=== PATIENT | female | born 1955 | race Caucasian/White ===

== ENCOUNTER → 2019-04-09 09:41 | Day surgery (SDC) | payer OTHER ==
[~2019-04-09 09:41] MED LIST: Atropine 1MG/ML INJ* 1 ML VIAL ONE; Buffered Lidocaine 1% SYRIN* 1 ML/SYRINGE INTRADERM ONE; Dexamethasone IV* 4 MG/ML 1 ML (4 MG) ONE; Dexmedetomidine* 200 MCG/2 ML 2 ML VIAL ONE; Glycopyrrolate IV* 0.2 MG/ML 1 ML VIAL ONE; Ketorolac INJ* 30 MG/ML 1 ML VIAL ONE; Lactated Ringers 1000 ML Bag* 1,000 ML IV SCH; Lidocaine 2% PF * 5 ML VIAL ONE; Metoclopramide IV* 5 MG/ML 2 ML VIAL ONE; Midazolam* 1 MG/ML 2 ML VIAL (2 MG) ONE; Ondansetron INJ* 2 MG/ML VIAL ONE; Propofol* 10 MG/ML 20 ML BTL ONE; ROPIVACAINE 5 MG/ML 30 ML BTL (0.5%) ONE; Rocuronium* 10 MG/ML VIAL ONE; Sugammadex * 500 MG/5 ML VIAL IV PUSH ONE; ceFAZolin 2 GM PREMIX in ORs 2 GM/50 ML BAG ONE; fentaNYL* 50 MCG/ML 2 ML VIAL (100 MCG VIAL) ONE
[2019-04-09 15:15] VITALS: BP 124/75
--- NOTE | 2019-04-10 01:04 | OP ---
CC: PCP, Diamond Mtz MD * DATE OF OPERATION: 04/09/19 - [facility] DATE OF : 53 SURGEON: Melia Olivares MD. ASSISTANTS: GEORGETTE Oshea. Second environmental emergencies assistant was Jean Paul , a GEORGETTE Student An environmental emergencies assistant was needed for the entirety of the case to help with positioning, retraction, and utilized throughout all portions of the case. ANESTHESIOLOGIST: Dr. Georges. ANESTHESIA: General and interscalene block. PRE-OP DIAGNOSES: Osteoarthritis of the shoulder, high-grade partial tear of the right rotator cuff, loose body in the glenohumeral joint. POST-OP DIAGNOSES: Osteoarthritis of the shoulder, high-grade partial tear of the right rotator cuff, loose body in the glenohumeral joint. OPERATIVE PROCEDURES: Right shoulder arthroscopy with: 1. Extensive glenohumeral debridement including chondroplasty and biceps tenotomy. 2. Removal of loose body x1, greater than 1 cm. 3. Subacromial decompression with acromioplasty. 4. Rotator cuff repair using a Regeneten patch. COMPLICATIONS: None. ESTIMATED BLOOD LOSS: Minimal. IMPLANTS USED: One Regeneten patch. INDICATIONS: Tammie Collins is a 63-year-old female who presents with right shoulder pain. She also had osteoarthritis of the shoulder. After extensive discussion, she had persistent pain and loss of motion. She has failed physical therapy, antiinflammatories. She has elected to proceed with surgical treatment. Risks and benefits were discussed at length include, but are not limited to bleeding, infection, damage to nerves, vessels, and surrounding structures; wound nonhealing; persistent pain, need for further surgery, scarring, stiffness, incomplete relief of symptoms, risk of anesthesia. OPERATIVE NOTE: The patient was greeted in the preoperative area by the attending surgeon. The correct extremity was marked and consent was confirmed. The patient underwent interscalene nerve block by the anesthesiologist. After which, she was brought back to the operating suite where she was placed in supine position on the operating table. She underwent general anesthesia with endotracheal intubation. She was then placed in the left lateral decubitus position with all bony prominences padded and she was secured with a peg board and an axillary roll was placed. The right shoulder was then prepped and draped in the usual sterile fashion beginning with chlorhexidine soap, scrub, and alcohol wipe and a final prep with ChloraPrep. After appropriate surgical pause indicating side, site, and procedure, administration of antibiotics, a standard postero-lateral portal was made sharply with an #11 blade. The scope was introduced into the joint, the joint was examined. There was abundant synovitis and glenohumeral arthritis with an unstable flap. There were areas of grade 2 and 3 changes. There was a large loose body inferiorly in the recess. The anterior portal was made in an outside -in fashion. A shaver was used to debride back to the anterior, posterior, and superior labrum. The biceps was subluxed and there was a partial tear of the infraspinatus with an unstable flap. The subscap appeared to be intact. The shaver was used to debride back to stable chondroplasty to the anterior, posterior, and superior labrum. The loose body that was evidenced inferior in the joint was then carefully piecemealed and removed carefully. Once this was removed, the remaining of the labrum was debrided back. Decision was made to treat the biceps. We have discussed biceps tenotomy versus biceps tenodesis. I do think that the patient had a large enough biceps that it would likely auto tenodese at the portal side and therefore I tenotomized it at this point. Once the debridement was completed, attention was directed to the subacromial space. After the scope was positioned in the subacromial space, the lateral port was made in an outside-in fashion. Shaver was used to debride back the abundant significant bursa that was present and revealed an anterolateral spur that was down-jerez sloping. This was removed using a 4.0 oval shelly and the CA ligament was peeled back. Once this was completed, the cuff was gently probed. There was no evidence full-thickness tearing. Decision was made to treat the rotator cuff repair with a Regeneten patch. A size medium Regeneten patch was then brought to the field and placed under arthroscopic direct visualization. Once this was done, through a separate stab incision, a cannula was placed to pass the tendon mellissa. These were then passed with a good purchase and this helped to secure the graft medially. After this was done, two bone mellissa were used laterally to help secure it to the bone. After this was done, the final images were obtained. The shoulder was taken through gentle range of motion and the graft was found to be well placed. Final images were obtained. The wounds were copiously irrigated with sterile saline. Portals were closed with 3-0 nylon. Sterile dressings were applied. She was awoken from anesthesia and and transferred to the PACU in stable condition. POSTOPERATIVE PLAN: She will be nonweightbearing. She will be discharged on pain medication. DVT prophylaxis was considered, but deferred due to no previous personal or family history. I will see the patient back in 10 to 14 days. [id number]/[facility] #: [id number] [facility]VERNEUR HEALTHAntonio
== END | disposition home or self-care (01) ==
LOC: OR 09:41
PROVIDERS: ATTEND Orthopaedic Surgery
DX: S46.011A Strain of muscle(s) and tendon(s) of the rotator cuff of right shoulder, initial encounter (principal); M19.011 Primary osteoarthritis, right shoulder; M24.011 Loose body in right shoulder; W18.39XA Other fall on same level, initial encounter; Y92.9 Unspecified place or not applicable; G89.18 Other acute postprocedural pain; I10 Essential (primary) hypertension; E78.5 Hyperlipidemia, unspecified
CPT/HCPCS: C1713; J0461; J0690; J1100; J1885; J2250; J2405; J2704; J2765; J2795; J3010

== ENCOUNTER 2019-10-28 07:00 | Inpatient (IN) | payer MEDICARE, OTHER ==
[~2019-10-28 07:00] MED LIST changes: -Atropine 1MG/ML INJ* 1 ML VIAL ONE; -Dexamethasone IV* 4 MG/ML 1 ML (4 MG) ONE; -Dexmedetomidine* 200 MCG/2 ML 2 ML VIAL ONE; -Glycopyrrolate IV* 0.2 MG/ML 1 ML VIAL ONE; -Ketorolac INJ* 30 MG/ML 1 ML VIAL ONE; -Lactated Ringers 1000 ML Bag* 1,000 ML IV SCH; -Lidocaine 2% PF * 5 ML VIAL ONE; -Metoclopramide IV* 5 MG/ML 2 ML VIAL ONE; -Midazolam* 1 MG/ML 2 ML VIAL (2 MG) ONE; -Ondansetron INJ* 2 MG/ML VIAL ONE; -Propofol* 10 MG/ML 20 ML BTL ONE; -ROPIVACAINE 5 MG/ML 30 ML BTL (0.5%) ONE; -Rocuronium* 10 MG/ML VIAL ONE; -Sugammadex * 500 MG/5 ML VIAL IV PUSH ONE; +Tranexamic Acid 1,000 MG in NS 0.9% 50 ML IV ONE; +ceFAZolin 1 GM ADVAN(*) 1 GM ADDV.VIAL IVPB ONE; -fentaNYL* 50 MCG/ML 2 ML VIAL (100 MCG VIAL) ONE
[2019-10-28] MEDS: Lactated Ringers 1000 ML Bag* 1,000 ML IV SCH ×2 (07:46→08:02)
[2019-10-28] MEDS ORDERED: Propofol* 10 MG/ML 20 ML BTL ONE (08:43)
[2019-10-28] MEDS ORDERED: fentaNYL* 50 MCG/ML 2 ML VIAL (100 MCG VIAL) ONE (08:44)
[2019-10-28] MEDS ORDERED: Dexmedetomidine* 200 MCG/2 ML 2 ML VIAL ONE (08:44)
[2019-10-28] MEDS ORDERED: Lidocaine 2% PF * 5 ML VIAL ONE (08:44)
[2019-10-28] MEDS ORDERED: ROPIVACAINE 5 MG/ML 30 ML BTL (0.5%) ONE (08:44)
[2019-10-28] MEDS ORDERED: Rocuronium* 10 MG/ML VIAL ONE ×2 (08:44→09:59)
[2019-10-28] MEDS ORDERED: Midazolam* 1 MG/ML 2 ML VIAL (2 MG) ONE (08:44)
[2019-10-28] MEDS ORDERED: Lidocaine 1% MPF ** 5 ML VIAL ONE (08:49)
[2019-10-28] MEDS ORDERED: Atropine 1MG/ML INJ* 1 ML VIAL ONE (09:30)
[2019-10-28] MEDS ORDERED: Phenylephrine 40 MCG/ML SYRINGE ONE ×2 (09:31→11:07)
[2019-10-28] MEDS ORDERED: Ondansetron INJ* 2 MG/ML VIAL ONE (09:50)
[2019-10-28] MEDS ORDERED: Metoclopramide IV* 5 MG/ML 2 ML VIAL ONE (09:50)
[2019-10-28] MEDS ORDERED: Dexamethasone IV* 4 MG/ML 1 ML (4 MG) ONE (09:50)
[2019-10-28] MEDS ORDERED: Ketorolac INJ* 30 MG/ML 1 ML VIAL ONE (09:50)
[2019-10-28] MEDS ORDERED: Acetaminophen IV 1GM/100ML * 100 ML ONE (10:05)
[2019-10-28] MEDS ORDERED: Naloxone* 0.4 MG/ML 1 ML VIAL IV PRN (10:06)
[2019-10-28] MEDS ORDERED: DiMENhydriNATE IV* 50 MG/ML VIAL IV PUSH PRN (10:06)
[2019-10-28] MEDS ORDERED: fentaNYL* 50 MCG/ML 2 ML VIAL (100 MCG VIAL) IV PRN (10:06)
[2019-10-28] MEDS ORDERED: Ropivacaine 0.2% * 2 MG/ML VIAL ONE (10:42)
[2019-10-28] MEDS ORDERED: diPHENhydraMINE IV* 50 MG/ML 1 ml VIAL (BENADRYL) IV PRN (11:48)
[2019-10-28] MEDS ORDERED: diPHENhydraMINE PO* 25 MG PO PRN (11:48)
[2019-10-28] MEDS ORDERED: Ondansetron INJ* 2 MG/ML VIAL IV PRN (11:48)
[2019-10-28] MEDS ORDERED: oxyCODONE/Acetamin 5/325 MG* TAB PO PRN (11:48)
[2019-10-28] MEDS ORDERED: Ondansetron ODT TAB* 4 MG PO PRN (11:48)
[2019-10-28] MEDS ORDERED: Magnesium Hydroxide LIQ* 30 ML UDC PO PRN (11:48)
[2019-10-28] MEDS ORDERED: Morphine INJ* 2 MG/ML 1 ML SYRINGE (TWO MG - NEW SYRINGE VERSION) IV PRN (11:48)
[2019-10-28] MEDS ORDERED: traMADol TAB* 50 MG PO PRN (11:48)
[2019-10-28] MEDS ORDERED: Polyethylene Glycol 3350* 17 GM PACKET PO PRN (11:48)
[2019-10-28] MEDS ORDERED: Lactated Ringers 1000 ML Bag* 1,000 ML IV SCH (12:00)
[2019-10-28] MEDS ORDERED: oxyCODONE TAB* 5 MG TAB ONE ×2 (12:15)
[2019-10-28] MEDS: oxyCODONE TAB* 5 MG TAB PO PRN ×2 (12:16→12:17)
[2019-10-28] MEDS: Acetaminophen TAB* 325 MG PO SCH ×2 (15:41→22:30)
[2019-10-28] MEDS: oxyCODONE/Acetamin 5/325 MG* TAB PO PRN ×2 (15:44→19:55)
[2019-10-28] MEDS: ceFAZolin 1 GM ADVAN(*) 1 GM in NS 0.9% 50 ML* 50 ML IVPB SCH (17:06)
[2019-10-28] MEDS: Atorvastatin* 20 MG TAB PO SCH (19:53)
[2019-10-28] MEDS: Docusate CAP* 100 MG PO SCH (19:53)
[2019-10-28] MEDS: Potassium Chlor TAB* 20 MEQ TAB.ER PO SCH (19:53)
[2019-10-28] MEDS: Magnesium Hydroxide LIQ* 30 ML UDC PO SCH (19:54)
--- NOTE | 2019-10-28 21:40 | CONS ---
CC: Dr. Diamond Mtz * MEDICINE CONSULTATION REPORT: DATE OF CONSULT: 10/28/19 PRIMARY CARE PHYSICIAN: Dr. Diamond Mtz. PROVIDER: Vazquez Ramirez NP REQUESTING PROVIDER: Dr. Olivares. CONSULTING PROVIDER: Dr. Evita Teixeira (dictated by Vazquez Ramirez NP). REASON FOR CONSULT: Co-medical management in the postoperative period, low SpO2. HISTORY OF PRESENT ILLNESS: Ms. Collins is a 63-year-old female who was electively admitted today for right total shoulder reverse. She reports that she had a fall a while back while vacationing in [place] and injured her shoulder and has had difficulty with healing and complications. She is status post a right shoulder arthroscopic surgery earlier this year but has continued to have pain. She reports prior to admission that she had a bit of a cold that her family passed around this past week, but had felt like she was improving. She does endorse some congestion. She is currently not experiencing any pain and denies feeling feverish or having chills, chest pain, difficulty breathing, abdominal pain, nausea, vomiting, or other concerns. Nursing has noted that she is still requiring 2 to 3 L of oxygen to keep her O2 sats above 90%. Ms. Collins denies any history of needing oxygen or complications from anesthesia. PAST MEDICAL HISTORY: Includes hypertension, osteoarthritis, anxiety, and sleep disorder. PAST SURGICAL HISTORY: Includes right carpal tunnel release, gastric sleeve, cholecystectomy, deviated septum repair, bilateral knee replacements, right shoulder arthroscopy. HOME MEDICATIONS: 1. Trazodone 100 mg at bedtime. 2. Celebrex 200 mg q.a.m. 3. Amlodipine 10 mg q.a.m. 4. Zolpidem 10 mg at bedtime. 5. Potassium chloride 20 mEq b.i.d. 6. Losartan potassium 100 mg b.i.d. 7. Hydrochlorothiazide 25 mg q.a.m. 8. Fluticasone nasal spray 1 spray to both nares at bedtime. 9. Famotidine 20 mg q.p.m. 10. Cholecalciferol 2000 units q.a.m. 11. Cetirizine 10 mg at bedtime. 12. Azelastine 1 spray nasal b.i.d. 13. Atorvastatin 20 mg at bedtime. ALLERGIES: Include LATEX. FAMILY HISTORY: Positive for hypertension, coronary artery disease. 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 She is and lives with her spouse. She denies any history of tobacco use, although she states that she had frequent exposure at her previous place of employment prior to assisted. She reports recreational alcohol use that is occasional and social , but not daily. She names her daughter, Lauren Collins as her surrogate decision maker and healthcare proxy as well as her , Billy Collins. REVIEW OF SYSTEMS: A 12-point review of systems was completed. All pertinent positives and negatives as per the HPI, all those not mentioned are negative. PHYSICAL EXAM: Vital Signs: Temperature 97.7, heart rate 72, respiratory rate 16, blood pressure 121/59, O2 saturation is 93% on 3 L nasal cannula. General: This is a well-developed 63-year-old female seen sitting up in the bed, in no acute distress. HEENT: Head is atraumatic, normocephalic. Pupils are equal, round, and reactive to light and accommodation. Extraocular movements are intact. Oral mucosa is moist. The patient has a +3 Mallampati score. No oropharyngeal erythema or exudate. Neck is supple. No lymphadenopathy appreciated. Cardiac: Regular rate and rhythm with normal S1, S2 heart sounds. Murmur is appreciated. No peripheral edema noted. Lungs are clear to auscultation bilaterally. Abdomen is soft, nontender, nondistended with normoactive bowel sounds. Musculoskeletal: There is a right shoulder immobilizer in place. There is good distal movement and sensation of the right fingers. Pedal pulses and radial pulses are symmetric and equal bilaterally. No clubbing or cyanosis. There is a Hemovac drain in place with bloody drainage. Neuro: She is alert and oriented x3. Speech is clear. No focal deficits noted. ASSESSMENT AND PLAN: This is a 63-year-old female who is status post right shoulder total reverse. She is postop day #0. She is seen today as a consult and also for evaluation of low SpO2. 1. Right total shoulder reverse. Management per Ortho. Continue with pain management and therapy. 2. Hypoxia. I suspect that this is a combination of the patient recovered from anesthesia and not taking deep breaths, as well as her oral anatomy and positioning and pain medications. She is not dyspneic. Her lungs are clear. I did encourage her to use her incentive spirometer and then sit up when possible to help promote better oxygenation. She does note that her dentist has also told her about the crowding of her throat and that breathing and throat closing is a common issue for her. She may benefit from sleep study and sleep apnea screening as an outpatient, but in the interim we will continue to use oxygen and encourage incentive spirometry and try to wean her off the oxygen within the next 12 hours or so if possible. If she stays overnight on 10/29/19, we could do an overnight pulse oximetry. I do not see any signs of fever , tachypnea, or distress to indicate chest x-ray at this time and she should hopefully will be able to be weaned without difficulty. 3. Hypertension. She is on multiple agents at home. In the postoperative period, we will continue her amlodipine, hold her losartan, hold her hydrochlorothiazide and monitor her blood pressure. 4. Sleep disorders. We will hold her Ambien and agree with decreasing her trazodone dose down to 25 mg, given her analgesia and other concurrent concerns at the moment. We will try to limit the amount of sedating medications. 5. DVT prophylaxis: As per Ortho, she will start on Eliquis. 6. Code status: She is a full code. TIME SPENT: Approximately 45 minutes was spent on this consult with greater than half that time spent [id number] with the patient obtaining history and physical, performing physical examination, and reviewing the plan of care. Plan of care was also reviewed with my attending, Dr. Teixeira, who is in agreement. VAZQUEZ RAMIREZ, HARI [id number]/[facility] #: [id number] ALMAZ
[2019-10-29] MEDS: traZODone TAB* 50 MG TAB PO PRN ×2 (00:21→20:31)
[2019-10-29] MEDS: ceFAZolin 1 GM ADVAN(*) 1 GM in NS 0.9% 50 ML* 50 ML IVPB SCH ×2 (00:23→08:57)
[2019-10-29] MEDS: oxyCODONE/Acetamin 5/325 MG* TAB PO PRN ×4 (04:32→20:27)
[2019-10-29] MEDS: Benzocaine/Menthol LOZ* 1 LOZENGE PO PRN ×2 (04:34→23:33)
[2019-10-29] MEDS: Acetaminophen TAB* 325 MG PO SCH ×3 (04:38→20:28)
[2019-10-29 06:22] LABS: Hematocrit 39 % (35-47); Hemoglobin 13.1 g/dL (12.0-16.0); Mean Platelet Volume 9.4 fL (7.4-10.4); Platelet Count 187 10^3/uL (150-450)
[2019-10-29 06:37] LABS: BUN/Creatinine Ratio 19.2 (8-20); Calcium 8.6 mg/dL (8.6-10.3); EGFR African American 49.9 (>60); EGFR Non-African American 41.2 (>60); Potassium 3.7 mmol/L (3.5-5.0)
[2019-10-29] MEDS: oxyCODONE TAB* 5 MG TAB PO PRN ×2 (08:44→23:38)
[2019-10-29] MEDS: Docusate CAP* 100 MG PO SCH ×2 (08:45→20:26)
[2019-10-29] MEDS: Vitamin THERAPEUTIC TAB PO SCH (08:45)
[2019-10-29] MEDS: Potassium Chlor TAB* 20 MEQ TAB.ER PO SCH ×2 (08:45→20:27)
[2019-10-29] MEDS: amLODIPine TAB* 5 MG PO SCH (08:45)
[2019-10-29] MEDS: Apixaban* 2.5 MG TAB PO SCH ×2 (08:45→20:26)
[2019-10-29] MEDS: Magnesium Hydroxide LIQ* 30 ML UDC PO SCH ×2 (08:57→20:26)
[2019-10-29] MEDS: Cyclobenzaprine TAB* 10 MG PO PRN ×2 (10:26→20:26)
--- NOTE | 2019-10-29 11:13 | PN ---
Progress Note - Progress Note Date of Service: 10/29/19 Note: POD 1: s/p right TSA- patient seated in joint chair due to pain. She is using pain medication without relief of discomfort at this time. She is unable to move easily due to pain and the fact that she is RHD. She has worked with PT. Her dressing in C/D/I with an intact drain. She denies CP, SOB or calf pain. Skin is PWD with minimal edema. She has AROM in right wrist and hand, with intact sensation and 2+ radial pulse. Patient's drain was removed without incident and she tolerated this well. I discussed use of muscle relaxer in combination with pain pills and continued work with PT with the patient and hope for discharge tomorrow if pain is managed.
--- NOTE | 2019-10-29 17:52 | PN ---
Subjective Date of Service: 10/29/19 Interval History: c/o right shoulder pain. Denies chest pain or shortness of breath. Denies abd n/v/d. Denies fever or chest pain . Family History: Unchanged from Admission Social History: Unchanged from Admission Past Medical History: Unchanged from Admission Objective Active Medications: Acetaminophen (Tylenol Tab*) 975 mg PO Q8HR [facility] Last Admin: 10/29/19 14:06 Dose: Not Given Amlodipine Besylate (Norvasc Tab*) 10 mg PO QAM [facility] Last Admin: 10/29/19 08:45 Dose: 10 mg Apixaban (Eliquis*) 2.5 mg PO BID [facility] Last Admin: 10/29/19 08:45 Dose: 2.5 mg Atorvastatin Calcium (Lipitor*) 20 mg PO BEDTIME [facility] Last Admin: 10/28/19 19:53 Dose: 20 mg Bisacodyl (Dulcolax Supp*) 10 mg OK DAILY PRN PRN Reason: CONSTIPATION Cyclobenzaprine HCl (Flexeril Tab*) 10 mg PO Q6H PRN PRN Reason: SPASMS Last Admin: 10/29/19 10:26 Dose: 10 mg Diphenhydramine HCl (Benadryl Iv*) 25 mg IV Q6H PRN PRN Reason: PRURITIS Diphenhydramine HCl (Benadryl Po*) 25 mg PO Q6H PRN PRN Reason: PRURITIS Docusate Sodium (Colace Cap*) 100 mg PO BID [facility] Last Admin: 10/29/19 08:45 Dose: 100 mg Lactated Ringer's (Lactated Ringers 1000 Ml Bag*) 1,000 mls @ 100 mls/hr IV PER RATE [facility] Last Admin: 10/28/19 13:55 Dose: 100 mls/hr Lactulose (Lactulose*) 30 ml PO BID PRN PRN Reason: CONSTIPATION Magnesium Hydroxide (Milk Of Magnesia Liq*) 30 ml PO BID [facility] Last Admin: 10/29/19 08:57 Dose: 30 ml Magnesium Hydroxide (Milk Of Magnesia Liq*) 30 ml PO Q6H PRN PRN Reason: CONSTIPATION Morphine Sulfate (Morphine Inj (Syringe))*) 2 mg IV Q4H PRN PRN Reason: Pain - Unrelieved Multivitamins (Theragran Tab*) 1 tab PO DAILY [facility] Last Admin: 10/29/19 08:45 Dose: 1 tab Ondansetron HCl (Zofran Inj*) 4 mg IV Q6H PRN PRN Reason: NAUSEA Ondansetron HCl (Zofran Odt Tab*) 4 mg PO Q6H PRN PRN Reason: NAUSEA Oxycodone HCl (Roxycodone Tab*) 10 mg PO Q4H PRN PRN Reason: Pain - Breakthrough Last Admin: 10/29/19 08:44 Dose: 10 mg Oxycodone/Acetaminophen (Percocet 5/325 Tab*) 1 tab PO Q4H PRN PRN Reason: PAIN - MODERATE Last Admin: 10/29/19 00:20 Dose: 1 tab Oxycodone/Acetaminophen (Percocet 5/325 Tab*) 2 tab PO Q4H PRN PRN Reason: PAIN - SEVERE Last Admin: 10/29/19 16:32 Dose: 2 tab Polyethylene Glycol/Electrolytes (Miralax*) 17 gm PO DAILY PRN PRN Reason: Constipation Potassium Chloride (Klor Con Er Tab*) 20 meq PO BID [facility] Last Admin: 10/29/19 08:45 Dose: 20 meq Throat Lozenges (Chloraseptic Sidney*) 1 sidney PO Q6H PRN PRN Reason: SORE THROAT Last Admin: 10/29/19 04:34 Dose: 1 sidney Tramadol HCl (Ultram*) 50 mg PO Q6HR PRN PRN Reason: PAIN - MODERATE Trazodone HCl (Desyrel Tab*) 25 mg PO BEDTIME PRN PRN Reason: insomnia Last Admin: 10/29/19 00:21 Dose: 25 mg Vital Signs - 8 hr 10/29/19 10/29/19 10/29/19 10:04 10:26 11:45 Temperature 98.2 F Pulse Rate 64 58 Respiratory 20 18 Rate Blood Pressure 121/69 (mmHg) O2 Sat by Pulse 91 Oximetry 10/29/19 10/29/19 10/29/19 12:28 14:20 15:18 Temperature 97.9 F Pulse Rate 53 Respiratory 20 14 16 Rate Blood Pressure 103/52 (mmHg) O2 Sat by Pulse Oximetry 10/29/19 10/29/19 16:19 16:32 Temperature Pulse Rate Respiratory 16 Rate Blood Pressure (mmHg) O2 Sat by Pulse 92 Oximetry Oxygen Devices in Use Now: CPAP Appearance: alert oriented x 3 , no acute distress Eyes: No Scleral Icterus Ears/Nose/Mouth/Throat: Clear Oropharnyx, Mucous Membranes Moist Neck: NL Appearance and Movements; NL JVP, Trachea Midline Respiratory: Symmetrical Chest Expansion and Respiratory Effort, Clear to Auscultation Cardiovascular: NL Sounds; No Murmurs; No JVD, No Edema Abdominal: NL Sounds; No Tenderness; No Distention Extremities: No Edema, No Clubbing, Cyanosis Skin: No Rash or Ulcers Neurological: Alert and Oriented x 3 Nutrition: Taking PO's Result Diagrams: 10/29/19 05:59 10/29/19 05:59 Assess/Plan/Problems-Billing Assessment: Ms. Collins is a 63 y.o female with hx of htn, anxiety who [place] [facility] reverse - Patient Problems (1) Status post reverse arthroplasty of right shoulder Current Visit: Yes Status: Acute Code(s): Z96.611 - PRESENCE OF RIGHT ARTIFICIAL SHOULDER JOINT SNOMED Code(s): 56960565300431476 Comment: managment per orthopedics - PT/OT per orthopedics - pain management per orthopedics - bowel medications per orthopedics (2) HTN (hypertension) Current Visit: Yes Status: Acute Code(s): I10 - ESSENTIAL (PRIMARY) HYPERTENSION SNOMED Code(s): 38188416 Comment: continue amlodipine - hold losartan and HCTZ (3) DVT prophylaxis Current Visit: Yes Status: Acute Code(s): Z29.9 - ENCOUNTER FOR PROPHYLACTIC MEASURES, UNSPECIFIED SNOMED Code(s): 426214204 Comment: eliquis per orthopedics (4) Full code status Current Visit: Yes Status: Acute Code(s): Z78.9 - OTHER SPECIFIED HEALTH STATUS SNOMED Code(s): 826512713 Status and Disposition: discharge per orthopedics
[2019-10-29] MEDS: Atorvastatin* 20 MG TAB PO SCH (20:26)
[2019-10-30 05:17] LABS: Hematocrit 36 % (35-47); Hemoglobin 11.8 g/dL (12.0-16.0); Mean Platelet Volume 9.3 fL (7.4-10.4); Platelet Count 148 10^3/uL (150-450)
[2019-10-30] MEDS: oxyCODONE/Acetamin 5/325 MG* TAB PO PRN (05:54)
[2019-10-30] MEDS: Acetaminophen TAB* 325 MG PO SCH (06:05)
[2019-10-30 07:23] VITALS: BP 109/61
--- NOTE | 2019-10-30 09:29 | DS ---
Orthopedic Discharge Summary - Discharge Summary Date of Admission:10/28/19 Date of Discharge: 10/30/19 Date of Surgery: 10/28/19 Attending Orthopedic Provider: Dr Olivares Pre-operative Diagnosis: Right shoulder osteoarthritis Operative Procedure: right total shoulder replacement, reverse Disposition of Patient: home without PT or nursing services Condition of Patient: stable History: ANA PAULA ROMAN is a 63 year old F with increasingly severe right shoulder pain. Patient has failed conservative management and has elected to undergo a reverse right total shoulder replacement Hospital Course: ANA PAULA was admitted to [facility] on 10/28/19. Patient underwent a reverse right total shoulder replacement without complication followed by a brief recovery in PACU and transfer to the Short Stay Surgical Unit in stable condition. Our hospitalist service, physical therapy and occupational therapy also participated in this patients care. Post- op day 1: patient was alert and in no acute distress. Drain was pulled without complication. Dressing was clean, dry and intact. Operative extremity wrist and mcp f/e intact, sensation intact to light touch distally, radial pusle2+. Post- op day two: Patient was seen at bedside, she had no complaints. Denied CP, SOB, dizziness, nausea. Sling in place, f/e at wrist and digits intact, tumbs up and okay intact, sensation intact to light touch distally and capillary refill less than two seconds distally. Patient was deemed to be medically and orthopedically stable for discharge. Physical therapy goals were met. Home Medications Medication Instructions Recorded Confirmed Type Atorvastatin* [Lipitor 20 MG*] 20 mg PO BEDTIME 04/03/19 10/28/19 History Azelastine 0.15% NASAL(NF) 1 spray NASAL BID 04/03/19 10/28/19 History [Astepro 0.15% NASAL (NF)] Cetirizine* [ZyrTEC 10 MG TAB*] 10 mg PO BEDTIME 04/03/19 10/28/19 History Cholecalciferol TAB* [Vitamin D 2,000 units PO QAM 04/03/19 10/28/19 History TAB*] Fluticasone NASAL SPRAY 50MCG* 1 spray BOTH NARES BEDTIME 04/03/19 10/28/19 History [Flonase NASAL SPRAY 50MCG*] Potassium Chlor TAB* [Potassium 20 meq PO BID 04/03/19 10/28/19 History Chlor TAB 20 MEQ*] amLODIPine TAB* [Norvasc 5 mg TAB*] 10 mg PO QAM 04/03/19 10/28/19 History celeCOXIB CAP* [Celebrex CAP*] 200 mg PO QAM 04/03/19 10/28/19 History traZODone TAB* [Desyrel TAB*] 100 mg PO BEDTIME 04/03/19 10/28/19 History Zolpidem Tartrate [Ambien] 10 mg PO BEDTIME 04/09/19 10/28/19 History Famotidine TAB* 20 mg PO QPM 10/24/19 10/28/19 History Hydrochlorothiazide TAB* HOLD 25 mg PO QAM 10/24/19 10/28/19 History Losartan Potassium HOLD 100 mg PO BID 10/24/19 10/28/19 History Acetaminophen TAB* [Tylenol TAB*] 975 mg PO Q8HR tab 10/30/19 Rx Docusate CAP* [Colace Cap*] 100 mg PO BID PRN #90 cap MDD 10 10/30/19 Rx oxyCODONE/Acetamin 5/325 MG* 1 tab PO Q4H PRN tab MDD 8 10/30/19 Rx [Percocet 5/325 TAB*] oxyCODONE/Acetamin 5/325 MG* 2 tab PO Q4H PRN #56 tab MDD 8 10/30/19 Rx [Percocet 5/325 TAB*] Discharge Instructions following Orthopedic Surgery: Activity: * Nonweightbearing operative extremity * Continue physical therapy and occupational therapy exercises as shown * No Active range of motion of the operative shoulder. May continue passive range of motion forward flexion and abduction to 90 degrees, external rotation to 25 degrees. Okay to do shoulder pendulums * Okay to do active range of motion of the elbow, wrist, fingers. Wound care: * OK to shower on post-op day 3, no bathing, swimming, or submerging wound. * Use gentle soap, pat dry. Cover with gauze, DOROTHY wrap or tape. Call Orthopedic office for: * Increased drainage * Redness * Increased pain * Fever Go to ER with shortness of breath or chest pain. Diet: * Regular diet * Increase fluids and fiber to prevent constipation. * Continue to use stool softeners, call office if no bowel motion within 48 hours. Medications See Home Medication List in your packet for medications that you should take after discharge. Pain Control: Percocet Dosin/325 mg 1-2 tabs by mouth every 4-6 hours as needed for pain. Maximum of 8 tabs per day. Hold for sedation, wean off as soon as pain allows Please note that Percocet contains Tylenol (acetaminophen). Maximum daily dose of Tylenol is 4000 mg from all sources. cyclobenzaprine 10 mg 1 tab every 8 hours as needed for spasm. HOld for sedation and wean off as soon as pain allows Antibiotics are required prior to any dental work. FOLLOW UP: Follow up with [Elise] Within 10-14 days, call for appointment Please call our office with any questions or concerns ([phone]) Your blood pressures have been well controlled on amlodipine alone during your hospital stay. Please do not take your hydrochlorothiazide or losartan this week , follow up with your PCP within 1 week for a blood pressure check to determine if these medications need to be restarted Rx [facility]
[2019-10-30] MEDS: amLODIPine TAB* 5 MG PO SCH (09:32)
[2019-10-30] MEDS: Apixaban* 2.5 MG TAB PO SCH (09:32)
[2019-10-30] MEDS: Potassium Chlor TAB* 20 MEQ TAB.ER PO SCH (09:32)
[2019-10-30] MEDS: Vitamin THERAPEUTIC TAB PO SCH (09:32)
[2019-10-30] MEDS: Docusate CAP* 100 MG PO SCH (09:33)
[2019-10-30] MEDS: Magnesium Hydroxide LIQ* 30 ML UDC PO SCH (09:33)
--- NOTE | 2019-10-30 12:34 | OP ---
DATE OF OPERATION: 10/28/19 - ROOM #331 DATE OF : 53 SURGEON: Melia Olivares MD ACADEMIC SUPPORT DIRECTOR: GEORGETTE Li. An microbiology lab assistant was needed for the entirety of the case to help with positioning, retraction and was utilized throughout all portions of the case. ANESTHESIOLOGIST: Dr. Georges. ANESTHESIA: General interscalene block. PRE-OP DIAGNOSIS: Right shoulder osteoarthritis with partial tearing of the rotator cuff. POST-OP DIAGNOSIS: Right shoulder osteoarthritis with partial tearing of the rotator cuff. OPERATIVE PROCEDURE: Reverse right shoulder arthroplasty. COMPLICATIONS: None. ESTIMATED BLOOD LOSS: About 200. IMPLANTS USED: Aequalis Reversed II size 36 glenosphere, size 25 x 40 threaded post baseplate with 3 interlocking screws, Ascend Flex size 1B stem with a centered tray and a +9 insert. INDICATIONS: Tammie Collins is a 63-year-old female with osteoarthritis of the shoulder. She has failed conservative management. We treated her earlier this year for supposed rotator cuff symptoms. She continues to struggle. After an extensive discussion of risks and benefits of operative versus nonoperative treatment, she has elected to proceed with surgical treatment. Risks including but not limited to bleeding; infection; damage to nerves, vessels, surrounding structures; wound nonhealing; persistent pain; need for further surgery; scarring; stiffness; incomplete relief of symptoms; and risk of anesthesia. We did discuss that we would plan for an anatomic but if she had terrible motion or some concerns to the rotator cuff, I would treat her with a reverse. She has elected to proceed with surgical treatment. DESCRIPTION OF PROCEDURE: The patient was greeted in the preoperative area by the attending surgeon. The correct extremity was marked and the consent was confirmed. She underwent interscalene nerve block in the preoperative area and then she was brought back to the operating suite, where she was placed in the supine position on the operating table. She then underwent general anesthesia with endotracheal intubation after which she was slowly positioned in a lazy beach chair position. The right shoulder was then prepped and draped in the usual sterile fashion beginning with chlorhexidine soap, scrub, and alcohol wipe and a final prep with ChloraPrep. Her range of motion was assessed prior to prepping and she had an external rotation to about 10 degrees, forward flexion to about 105 degrees and abduction to about 80 degrees. At this point, decision was made to proceed with a reverse because of her very poor external rotation, the thought was that her rotator cuff would not be able to be mobilized and she compensates very well. After appropriate surgical pause indicating side, site, procedure, and administration of antibiotics, a standard deltopectoral incision was then made using a 15-blade. Soft tissues were carefully dissected to expose the deltopectoral interval. Once the interval was identified, the cephalic vein was taken laterally with the deltoid. There was abundant thick adhesions. Her shoulder was difficult to mobilize. The pec was identified. The proximal 1 to 1.5 cm was then released using electrocautery device. The patient had a previous tenotomy. The biceps was visualized and traced proximally to the joint. The subscap was identified and removed in a subscap peel fashion, again this patient had very poor external rotation and very short subscap. This was tagged with #5 Ethibond suture. The subscap was released in a subscap peel fashion. There was evidence of partial thickness tearing of the supraspinatus as well as an interstitial tear which confirmed the plan. The head was exposed and had some grade 3 and 4 changes and anterior inferior spur or osteophyte. As the head was exposed, part of the remaining cup was removed. The CA ligament was released to help with mobilization. Provisional neck cut was then made. The patient had very, very good quality bone, it was very hard. Sizing them began. The size 1B was found to have a good fit. I was concerned that because of the snug fit, I did not want to ream more aggressively because of her very good bone, I did not want to cause a fracture. The protection plate was placed and attention was directed to the glenoid. The posterior retractor was placed. The superior middle and inferior glenohumeral ligaments were released. The subscap was mobilized further. The glenoid neck retractor was then placed and the anterior, posterior, superior labrum were removed. The inferior labrum was also released with tension and the inferior soft tissues. There was abundant synovitis that was present. There were grade 2 to 3 changes to the glenoid. Any excess cartilage was scraped out using a Gonzalez. The guidewire was then placed to the inferior aspect of the glenoid, this was then reamed with 25 baseplate reamer and then a size 36 director of online merchandising was then used to do footprint reaming. A size 8 mm cannulated drill was then placed and then this was sized to 6.5 mm size, 40 was found to be appropriate length. This was then tapped and then final implant was placed with excellent purchase. Three interlocking screws were then used to secure the glenoid. Once this was secured, the glenosphere was then placed with excellent purchase and secured with a set screw. Attention was directed to the humerus. The stem was checked again and found to be well fixed. Provisional trial was placed. It was a bit tight so we recupped the humerus. This led to a more appropriate fit. The trialing began. Forward flexion was to about 150, abduction to about 100, external rotation to about 50. There was appropriate amount of shuck and it was dislocated with some difficulty. This was found to be the appropriate fit. The final implants were then prepared in the back table by the attending surgeon. The trial implants were removed. Two interosseous tunnels were then used to make a provisional subscap fixation to reduce the dislocation rate because of the patient's age. After the final implants were impacted in position with external rotation to about 20 degrees, the shoulder was then reduced and taken through the same range of motion. The wounds were then copiously irrigated with sterile saline. The subscap was then closed with the arm at about 45 degrees of external rotation. It was hard to mobilize the subscap for sure and it was further confirmed that this is the right surgery for her. The wound was irrigated again. An intraarticular drain was placed. The deltopectoral interval was closed with #2 Ethibond in interrupted fashion and the wounds were closed with 3-0 Monocryl in interrupted fashion. Sterile dressings were applied and a Cryo/Cuff was applied. She was awoken from anesthesia and transferred to PACU in stable condition. POSTOPERATIVE PLAN: She will be nonweightbearing, in a sling for 6 weeks. Discharged on pain medication. DVT prophylaxis was considered, but deferred. She will be on Lovenox inhouse. She will require a hospitalist consult because she has some O2 requirement after surgery. Potentially on postop day #1, we will discontinue her drain; if she needs a longer admission, we will keep her until she is medically able to go home. I will see the patient back in 10 to 14 days. [id number]/[facility] #: [id number] MTDD
== END 2019-10-30 11:16 | disposition home or self-care (01) | DRG 315 ==
LOC: OR 07:00 → SSU 13:30
PROVIDERS: ADMIT Orthopaedic Surgery; ATTEND Orthopaedic Surgery
PROC: 0RRJ00Z Replacement of Right Shoulder Joint with Reverse Ball and Socket Synthetic Substitute, Open Approach (ICD-10-PCS; principal; 2019-10-28 09:30)
DX: M19.011 Primary osteoarthritis, right shoulder (principal); Z68.41 Body mass index [BMI] 40.0-44.9, adult; I10 Essential (primary) hypertension; F41.9 Anxiety disorder, unspecified; Z96.653 Presence of artificial knee joint, bilateral; R09.02 Hypoxemia; E66.01 Morbid (severe) obesity due to excess calories; M75.111 Incomplete rotator cuff tear or rupture of right shoulder, not specified as traumatic; M25.711 Osteophyte, right shoulder; E78.2 Mixed hyperlipidemia; E78.00 Pure hypercholesterolemia, unspecified; K21.9 Gastro-esophageal reflux disease without esophagitis; E55.9 Vitamin D deficiency, unspecified; J30.1 Allergic rhinitis due to pollen; G47.33 Obstructive sleep apnea (adult) (pediatric); Z98.84 Bariatric surgery status; Z91.040 Latex allergy status; Z87.11 Personal history of peptic ulcer disease; Z79.899 Other long term (current) drug therapy
CPT/HCPCS: 36415; 80048; 85014; 85018; 85049; 88304; 88311; A9270-GY; C1713; C1776; J0461; J0690; J1100; J1885; J2250; J2405; J2704; J2765; J2795; J3010